=== PATIENT | male | born 1960 | race Caucasian/White ===

== ENCOUNTER 2018-05-11 12:34 | Inpatient (IN) | payer OTHER ==
[~2018-05-11] VITALS: Ht 165.1 cm; Wt 54.0 kg
--- NOTE | 2018-05-11 12:35 | NUR ---
bbpa from [facility]: nausea, vomiting, diarrhea, abdominal pain, NAD noted, VSS, resp even and unlabored. pt was put on monitor, at bs.
[2018-05-11] MEDS ORDERED: KETOROLAC TROMETHAMINE INJ 30 MG/ML VIAL ONE (13:16)
[2018-05-11] MEDS ORDERED: ONDANSETRON HCL/PF 4 MG/2 ML VIAL ONE (13:16)
[2018-05-11 13:22] LABS: BASOPHILS # (AUTO) 0.3 /CMM (0.0-0.2); BASOPHILS % (AUTO) 0.9 % (0.0-2.0); HEMATOCRIT 47 % (39-51); HEMOGLOBIN 16.1 g/dL (13.5-17.5); LYMPHOCYTES # (AUTO) 1.1 /CMM (0.8-4.8); MEAN CORPUSCULAR HEMOGLOBIN 29 PG (26.0-33.0); MEAN CORPUSCULAR HGB CONC 34 g/dl (31.0-36.0); MEAN CORPUSCULAR VOLUME 84 fL (80-96); MONOCYTES % (AUTO) 2.9 % (2.0-12.0); NEUTROPHILS # (AUTO) 33.2 /CMM (1.8-8.9); NEUTROPHILS % (AUTO) 93.2 % (43.0-81.0); PLATELET COUNT (AUTO) 719 /CMM (150-450); RED BLOOD CELL COUNT(AUTO) 5.65 MIL/uL (4.5-6.0)
[2018-05-11 13:26] LABS: WHITE BLOOD COUNT (AUTO) 35.6 K/uL (4.3-11.0)
[2018-05-11] MEDS ORDERED: IV NS 0.9% 1,000 ML BAG IV ONE ×3 (13:30→19:00)
[2018-05-11] MEDS ORDERED: ONDANSETRON HCL/PF 4 MG/2 ML VIAL IVP ONE (13:30)
[2018-05-11] MEDS ORDERED: KETOROLAC TROMETHAMINE INJ 30 MG/ML VIAL IV ONE (13:30)
[2018-05-11 13:39] LABS: ALANINE AMINOTRANSFERASE 9 U/L (12-78); ALBUMIN 2.1 g/dL (3.4-5.0); ALKALINE PHOSPHATASE 71 U/L (46-116); ASPARTATE AMINOTRANSFERASE 11 U/L (15-37); BILIRUBIN,DIRECT 0.1 mg/dL (0.0-0.2); BILIRUBIN,TOTAL 0.6 mg/dL (0.2-1.0); CARBON DIOXIDE 21 mmol/L (21-32); CHLORIDE 92 mmol/L (98-107); GLUCOSE 188 mg/dL (74-106); LIPASE 25 U/L (73-393); POTASSIUM 3.9 mmol/L (3.5-5.1); SODIUM SERUM 123 mmol/L (136-145); TOTAL PROTEIN, SERUM 5.9 g/dL (6.4-8.2); UREA NITROGEN, BLOOD 11 mg/dL (7-18)
[2018-05-11 13:40] LABS: INR 1.36 (0.85-1.15)
[2018-05-11] MEDS ORDERED: CT SWABBABLE VALVE TRANS SET 1 EA INFUS.SET MC ONE (13:59)
[2018-05-11] MEDS ORDERED: IOHEXOL-300 100 ML VIAL IV ONE (13:59)
[2018-05-11] MEDS ORDERED: CEFTRIAXONE 1GM BAG (ER ONLY) 50 ML IV ONE (14:00)
[2018-05-11] MEDS ORDERED: ACETAMINOPHEN ES 500 MG TABLET PO ONE (14:00)
[2018-05-11] MEDS ORDERED: VANCOMYCIN 1 GM in IV D5W 250 ML IV ONE (14:00)
[2018-05-11] MEDS ORDERED: AZITHROMYCIN 500 MG in IV D5W 250 ML IV ONE (14:00)
--- NOTE | 2018-05-11 14:00 | NUR ---
urine sent to lab
[2018-05-11] MEDS ORDERED: ACETAMINOPHEN ES 500 MG TABLET ONE (14:02)
[2018-05-11 14:03] LABS: APPEARANCE,URINE Clear (CLEAR); BILIRUBIN,URINE Negative (NEGATIVE); BLOOD, URINE Trace-intact Ery/uL (NEGATIVE); KETONES,URINE Negative (NEGATIVE); LEUKOCYTE ESTERASE ,URINE Negative (NEGATIVE); NITRITE, URINE Negative (NEGATIVE); PROTEIN,URINE 30 mg/dl (NEGATIVE); UGLUCOSE Negative (NEGATIVE); UROBILINOGEN,URINE 0.2 EU/dL (0.2)
[2018-05-11 14:04] LABS: COLOR,URINE DARK YELLOW (YELLOW)
--- NOTE | 2018-05-11 14:05 | NUR ---
pt to ctscan
[2018-05-11 14:13] LABS: RBC,URINE 0-2 /HPF (0-2); WBC,URINE 0-3 /HPF (0-3)
[2018-05-11 14:14] LABS: BACTERIA,URINE None seen /HPF (None Seen); MUCUS,URINE Few /LPF (None Seen); SQUAMOUS EPITHELIAL CELL,UR Few /HPF (None Seen)
[2018-05-11] MEDS ORDERED: LOPE2TAB25 PO (14:18)
[2018-05-11] MEDS ORDERED: ACET-868 PO (14:18)
[2018-05-11] MEDS ORDERED: POLY17PO4 PO (14:18)
[2018-05-11] MEDS ORDERED: DOCU-141 PO (14:18)
[2018-05-11] MEDS ORDERED: MAGN296S44 PO (14:18)
[2018-05-11] MEDS ORDERED: FERR325T23 PO (14:18)
[2018-05-11] MEDS ORDERED: METO-295 PO (14:18)
[2018-05-11] MEDS ORDERED: BISA10SU8 RC (14:18)
[2018-05-11] MEDS ORDERED: MELA3TAB PO (14:18)
[2018-05-11] MEDS ORDERED: MAGN400O6 PO (14:18)
[2018-05-11] MEDS ORDERED: BACL10TA PO (14:18)
[2018-05-11] MEDS ORDERED: NA P133E RC (14:18)
[2018-05-11 14:46] LABS: BAND % (MANUAL) 71 % (0.0-5.0); LYMPHOCYTES % (MANUAL) 6 % (16-48); MONOCYTES % (MANUAL) 10 % (0-11.0); NEUTROPHILS % (MANUAL) 13 (42-76)
[2018-05-11] MEDS ORDERED: FLAGYL/NS RTU 500 MG/100 ML PIGGYBACK IV ONE (15:00)
[2018-05-11] MEDS ORDERED: MAGNESIUM HYDROXIDE 30 ML UDC PO PRN (15:30)
[2018-05-11] MEDS ORDERED: Z GUARD REMEDY 2 OZ OINT TP PRN (15:30)
[2018-05-11] MEDS ORDERED: ZOLPIDEM TARTRATE 5 MG TABLET PO PRN (15:30)
[2018-05-11] MEDS ORDERED: ACETAMINOPHEN 325 MG TABLET PO PRN (15:30)
[2018-05-11] MEDS ORDERED: HYDROCODONE/APAP 5/325MG 1 EACH TABLET PO PRN (15:30)
--- NOTE | 2018-05-11 15:39 | NUR ---
BED 114-1
[2018-05-11] MEDS ORDERED: METRONIDAZOLE 500MG/ NS 100ML 500 MG in PREMIX 1 EA IV ONE (16:00)
[2018-05-11 16:45] VITALS: BP 89/56
--- NOTE | 2018-05-11 16:45 | NUR ---
TELE/RN ADMITTING NOTES RECEIVED PT FROM ER, VIA CARRILLO ACCOMPANIED BY RN,FAHEEM AND SAV. NO SOB NOTED. DIAPHORETIC AND AFEBRILE. PLACED ON TELE MONITOR. C/O ABDOMINAL PAIN WHEN MOVING. WITH ONGOING FLAGYL IV ON RFA. IV LINE INTACT AND PATENT WITH NO SIGNS OF INFECTION. VS TAKEN AND INITIAL SKIN/BODY ASSESSMENT DONE. SAFETY MEASURES OBSERVED. CALL LIGHT WITHIN REACH CURRENT TEMPT 97.2, WARM BLANKETS PROVIDED. WILL NOTIFY MD, WILL CONT TO MONITOR
[2018-05-11] MEDS ORDERED: METRONIDAZOLE 500MG/ NS 100ML 500 MG in PREMIX 1 EA IV SCH (17:00)
--- NOTE | 2018-05-11 17:00 | NUR ---
RN NOTES NOTIFIED DR DOSS RE: CURRENT PT'S TEMPT OF 97.2 AND BP OF 89/56. AWAITING FOR ORDERS
[2018-05-11] MEDS: ONDANSETRON HCL/PF 4 MG/2 ML VIAL IVP PRN ×2 (17:38→23:30)
[2018-05-11 17:42] VITALS: BP 89/56
[2018-05-11] MEDS: IV NS 0.9% 1,000 ML IV SCH (17:42)
--- NOTE | 2018-05-11 18:00 | NUR ---
RN NOTES PT WAS SEEN AND EXAMINED BY DR DOSS, ALL CONCERNS WERE ANSWERED BY MD. MADE NEW ORDER: IV BOLUS NS 1L, ST EVAL, NOTIFIED MD THAT PT REFUSED NORCO, ORDERED MORPHINE SULFATE 0.5MG/IVP X ONE DOSE. ORDERS NOTED AND CARRIED OUT, PT MADE AWARE, WILL CONT TO MONITOR
[2018-05-11 18:29] LABS: ALBUMIN 1.5 g/dL (3.4-5.0); BILIRUBIN,DIRECT 0.1 mg/dL (0.0-0.2); BILIRUBIN,TOTAL 0.4 mg/dL (0.2-1.0); TOTAL PROTEIN, SERUM 4.6 g/dL (6.4-8.2)
[2018-05-11] MEDS ORDERED: MORPHINE SULFATE INJ 2 MG/ML DISP.SYRIN IVP ONE (19:00)
--- NOTE | 2018-05-11 19:00 | NUR ---
RN NOTES RECEIVED CALL FROM LAB RE: PT'S CURRENT LACTIC ACID 5.3. DR DOSS MADE AWARE WITH ORDERS TO RESUME IVF NS @ 125 ML/HR AFTER BOLUS, THEN REPEAT LACTIC ACID AFTER 6HRS. ORDERS NOTED AND CARRIED OUT. PT DENIES CHEST PAIN AT THIS TIME. WILL CONT TO MONITOR
--- NOTE | 2018-05-11 19:15 | NUR ---
RN NOTES PT IN STABLE CONDITION. NO SOB NOTED, STILL ABDOMINAL PAIN WITH PAIN SCALE OF 4/10. IV BOLUS NS STILL ONGOING. SAFETY MEASURES OBSERVED AT ALL TIMES. ENDORSED TO PM SHIFT NURSE FOR RITESH
[2018-05-11 20:00] VITALS: BP 134/83
--- NOTE | 2018-05-11 21:00 | NUR ---
ANGIOGRAPHY TECHNOLOGIST NOTES LAB CALLED REGARDING STOOL SPECIMEN FOR O&P NOT ENOUGH. NEEDS TO COLLECT ANOTHER STOOL SAMPLE. WILL CONTINUE TO MONITOR.
--- NOTE | 2018-05-11 22:25 | NUR ---
OUTDOOR POWER EQUIPMENT MECHANIC NOTES PT C/O ABD PAIN. PT NOTED TO BE DIAPHORETIC. PER PT, TYLENOL DOESN'T HELP WITH THE PAIN. PT ALLERGIC TO CODEINE. REQUESTING FOR STRONGER PAIN MEDICATION. VSS. TEMP IS 97.4. CALLED DR RODRIGUEZ. NOTIFIED HIM RE PT'S CONDITION. NOTIFIED HIM RE PT'S LACTIC ACID LEVEL EARLIER. WITH NEW ORDERS MADE. ORDERS NOTED AND CARRIED OUT. WILL CONTINUE TO MONITOR.
[2018-05-11] MEDS ORDERED: KETOROLAC TROMETHAMINE INJ 30 MG/ML VIAL IM/IV PRN (23:00)
[2018-05-11 23:11] VITALS: BP 134/83
--- NOTE | 2018-05-11 23:57 | NUR ---
SPANISH INTERPRETER/TRANSLATOR NOTES PT NOTED TO BE DIAPHORETIC. ALSO NOTED TO BE PALE, COLD AND CLAMMY SKIN TO TOUCH. BS CHECKED 238. BP 83/57. HR 120, TEMP 98 RECTALLY, RR 22, 02 98% ON 4LPM VIA NC. PT C/O OF RLQ ABD PAIN RADIATING TO THE BACK. RAPID RESPONSE ACTIVATED. PAGED DR. RODRIGUEZ. AWAITING FOR RESPONSE.
[2018-05-12] VITALS (45 sets, daily range): BP systolic 26–148; BP diastolic 9–87
--- NOTE | 2018-05-12 00:36 | NUR ---
GUN CLUB MANAGER NOTES DR RODRIGUEZ CALLED. NOTIFIED MD RE PT'S CONDITION. WITH NEW ORDERS TO TRANSFER TO PT TO ICU. ORDERS NOTED AND CARRIED OUT. WILL CONTINUE TO MONITOR.
[2018-05-12] MEDS: IV NS 0.9% 1,000 ML IV SCH ×2 (00:40→08:41)
[2018-05-12 00:41] LABS: BASOPHILS # (AUTO) 0.1 /CMM (0.0-0.2); BASOPHILS % (AUTO) 0.2 % (0.0-2.0); EOSINOPHILS % (AUTO) 0.3 % (0.0-6.0); HEMATOCRIT 43 % (39-51); HEMOGLOBIN 13.9 g/dL (13.5-17.5); LYMPHOCYTES % (AUTO) 4.9 % (20.0-44.0); MEAN CORPUSCULAR HEMOGLOBIN 29 PG (26.0-33.0); MEAN CORPUSCULAR HGB CONC 32 g/dl (31.0-36.0); MEAN CORPUSCULAR VOLUME 89 fL (80-96); MONOCYTES # (AUTO) 0.6 /CMM (0.1-1.30); NEUTROPHILS # (AUTO) 58.5 /CMM (1.8-8.9); NEUTROPHILS % (AUTO) 93.6 % (43.0-81.0); PLATELET COUNT (AUTO) 442 /CMM (150-450); RDW COEFFICIENT OF VARIATION 15.6 (11.5-15.0); RED BLOOD CELL COUNT(AUTO) 4.85 MIL/uL (4.5-6.0)
--- NOTE | 2018-05-12 00:47 | NUR ---
TOWER ERECTOR HELPER NOTES REPORT GIVEN TO TALIA DERMATOLOGICAL SURGEON FOR CONTINUITY OF CARE. LAB ALSO CALLED FOR CRITICAL LABS OF PT. WBC IS 62.5 WILL F/U WITH MD. ENDORSED ACCORDINGLY.
[2018-05-12 00:48] LABS: WHITE BLOOD COUNT (AUTO) 62.5 K/uL (4.3-11.0)
--- NOTE | 2018-05-12 00:50 | NUR ---
DIE OPERATOR INITIAL NOTE RECEIVED PATIENT FROM [facility] REPORT GIVEN BY ALISIA MEDELLIN, SPEECH CLEAR, PALLOR, REPORTING ABDOMINAL PAIN 8/10, ON 4L O2 VIA NC, NO CARDIAC DISTRESS, ST ON TELE MONITOR, HYPOTENSIVE, LEFT SIDED WEAKNESS ON BEDREST, F/C DRAINING TO GRAVITY DARK YELLOW URINE, SAFETY MAINTAINED AT ALL TIMES, WILL CONTINUE TO MONITOR FOR ANY CHANGES IN CONDITION.
[2018-05-12 00:57] LABS: PHOSPHORUS 4.1 mg/dL (2.5-4.9)
[2018-05-12] MEDS ORDERED: MISCELLANEOUS MED 1 EA EA XX ONE ×2 (01:00→17:30)
[2018-05-12] MEDS ORDERED: HYDROMORPHONE 1 MG/1 ML DISP.SYRIN IV PRN (01:00)
[2018-05-12 01:10] LABS: POTASSIUM 2.1 mmol/L (3.5-5.1)
[2018-05-12 01:11] LABS: CALCIUM, SERUM 4.3 mg/dL (8.5-10.1); MAGNESIUM 1.1 mg/dL (1.8-2.4)
[2018-05-12] MEDS ORDERED: HYDROMORPHONE INJ 2 MG/ML DISP.SYRIN ONE (01:12)
--- NOTE | 2018-05-12 01:22 | NUR ---
STORE GROUP MANAGER NOTE CALL TO DR PLASCENCIA FOR CRITICAL LABS: WBC 62.5, K 2.1, LACTIC ACID 5.9, CA 4.3, MG 1.1, NEW ORDERS FOR LEVOFED DRIP AND REPLACE MG WITH 4G. RECHECK LABS IN AM.
[2018-05-12] MEDS ORDERED: NOREPINEPHRINE 4 MG/4 ML AMPUL IV ONE ×2 (01:26→06:23)
[2018-05-12] MEDS ORDERED: Magnesium 1GM/D5W 100ML PREMIX 400 ML IV ONE (01:27)
[2018-05-12] MEDS: NOREPINEPHRINE 8 MG in IV D5W 500 ML IV PRN ×3 (01:32→10:26)
[2018-05-12 01:35] LABS: LYMPHOCYTES % (MANUAL) 6 % (16-48); MONOCYTES % (MANUAL) 2 % (0-11.0); NEUTROPHILS % (MANUAL) 19 (42-76)
[2018-05-12 01:36] LABS: BAND % (MANUAL) 73 % (0.0-5.0)
[2018-05-12] MEDS: Magnesium 1GM/D5W 100ML PREMIX 100 ML IV SCH ×4 (01:46→05:05)
[2018-05-12] MEDS ORDERED: PIPERACILLIN /TAZOBACTAM 2.25 G VIAL IV ONE ×2 (01:59→04:16)
[2018-05-12] MEDS: PIPERACILLIN /TAZOBACTAM 4.5 G in IV D5W 50 ML IV SCH ×2 (02:17→05:30)
[2018-05-12 02:41] LABS: INR 2.35 (0.87-1.13)
--- NOTE | 2018-05-12 02:45 | NUR ---
PRINTER SMALL PRINT SHOP NOTE CALL FROM LAB TO REPORT PT 24.6, INR 2.35, PTT 82, CALL TO DR RODRIGUEZ WAITING FOR CALL BACK
--- NOTE | 2018-05-12 03:18 | NUR ---
PARAFFINER NOTE RELAYED TO DR RODRIGUEZ ON CRITICAL LABS PT 24.6, INR 2.35, PTT 82, ORDER TO RECHECK IN AM
[2018-05-12] MEDS ORDERED: Magnesium 1GM/D5W 100ML PREMIX 100 ML IV SCH (03:30)
[2018-05-12] MEDS: POTASSIUM CL. PREMIX PERIPHER. 50 ML IV SCH ×8 (03:32→13:04)
[2018-05-12] MEDS ORDERED: VANCOMYCIN HCL 125 MG/2.5 ML ORAL.SUSP ONE (04:11)
[2018-05-12 04:19] LABS: ABG BASE EXCESS -24.9 mmol/L; ABG OXYGEN SATURATION 99.1 % (92.0-98.5); ABG PCO2 25.5 mmHg (35.0-45.0); ABG PH 6.972 (7.350-7.450); ABG PO2 291.7 mmHg (75.0-100.0); AaDO2 172.8 mmHg; COHb 0.2 % (0.5-1.5); MetHb 0.7 % (0.0-1.5); O2Hb 98.2 % (94.0-97.0); SITE, ABG Right Brachial; VENT MODE, BG SIMPLE MASK
[2018-05-12] MEDS ORDERED: SODIUM BICARBONATE SYR 50 MEQ/50 ML DISP.SYRIN ONE (04:30)
[2018-05-12] MEDS ORDERED: ETOMIDATE 2 MG/ML VIAL ONE ×2 (04:31→04:37)
[2018-05-12] MEDS ORDERED: ROCURONIUM BROMIDE 50 MG/5 ML ONE (04:32)
--- NOTE | 2018-05-12 04:40 | NUR ---
NUT SHELLER MACHINE OPERATOR NOTE PATIENT INTUBATED DUE TO ALTERED ABG, BY DR HOLDEN, PT TOLERATED WELL, WILL CONT TO MONITOR FOR ANY CHANGES.
[2018-05-12] MEDS ORDERED: SODIUM BICARBONATE SYR 50 MEQ/50 ML DISP.SYRIN IV ONE ×3 (05:00→17:10)
[2018-05-12] MEDS ORDERED: ROCURONIUM BROMIDE 50 MG/5 ML IV ONE (05:00)
[2018-05-12] MEDS ORDERED: ETOMIDATE 2 MG/ML VIAL IV ONE (05:00)
--- NOTE | 2018-05-12 05:00 | NUR ---
BUILDING COMPONENTS DESIGNER NOTE NOTED PATIENT HAVING LEFT FOOT REDNESS, PEDAL PULSES CHECKED WITH DOPPLER AND MARKED, WILL CONT TO MONITOR AND ENDORSE TO AM NURSE
--- NOTE | 2018-05-12 05:00 | NUR ---
TECHNOLOGY LEAD NOTE UNABLE TO START KCL X8 BAGS DUE TO PT IS HARD STICK AND UNAVAILABLE LINES WILL START WHEN MAGNESIUM FINISHING INFUSING.
--- NOTE | 2018-05-12 05:30 | NUR ---
RELAY REPAIRER - DR. RODRIGUEZ HERE TO ASSESS PT. ORDERS REC'D. AWARE THAT PT. NEEDS PICC LINE. HS-ASHLEE CALLED & INFORMED OF NEED FOR PICC LINE. PT.IS ALREADY ON LEVOPHED GTT. & NEEDS BICARB GTT. MULTIPLE ELECTROLYTER REPLACEMENT IS ONGOING.
--- NOTE | 2018-05-12 05:30 | NUR ---
DATA ENTRY MANAGER NOTES WBC = 81.6 DR RODRIGUEZ MADE AWARE, NNO RECEIVED. WILL CONTINUE CLOSE MONITORING
[2018-05-12 05:37] LABS: BASOPHILS # (AUTO) 0.1 /CMM (0.0-0.2); BASOPHILS % (AUTO) 0.1 % (0.0-2.0); EOSINOPHILS % (AUTO) 0.8 % (0.0-6.0); HEMATOCRIT 53 % (39-51); HEMOGLOBIN 16.6 g/dL (13.5-17.5); LYMPHOCYTES # (AUTO) 6.3 /CMM (0.8-4.8); LYMPHOCYTES % (AUTO) 7.7 % (20.0-44.0); MEAN CORPUSCULAR HEMOGLOBIN 29 PG (26.0-33.0); MEAN CORPUSCULAR HGB CONC 32 g/dl (31.0-36.0); MEAN CORPUSCULAR VOLUME 91 fL (80-96); MONOCYTES % (AUTO) 1.2 % (2.0-12.0); NEUTROPHILS # (AUTO) 73.6 /CMM (1.8-8.9); NEUTROPHILS % (AUTO) 90.2 % (43.0-81.0); PLATELET COUNT (AUTO) 431 /CMM (150-450); RDW COEFFICIENT OF VARIATION 15.5 (11.5-15.0); RED BLOOD CELL COUNT(AUTO) 5.76 MIL/uL (4.5-6.0)
[2018-05-12] MEDS: VANCOMYCIN HCL 125 MG/2.5 ML ORAL.SUSP PO SCH ×2 (05:39→11:56)
[2018-05-12] MEDS ORDERED: Sodium Bicarbonate 150 MEQ in IV D5W 1,000 ML IV PRN (06:00)
--- NOTE | 2018-05-12 06:00 | NUR ---
SUPERVISOR WINDING DEPARTMENT NOTE DIANNA VIVIAN CALLED MULTIPLE TIMES, LEFT VMAIL ON WORK PHONE, CELL PHONE OUT OF SERVICE TO CALL BACK ICU DEPT, TO INFORM OF PATIENT STATUS WELL NOW NEED FOR PICC LINE CONSENT.
[2018-05-12 06:02] LABS: INR 2.1 (0.87-1.13)
[2018-05-12 06:05] LABS: WHITE BLOOD COUNT (AUTO) 81.6 K/uL (4.3-11.0)
[2018-05-12 06:25] LABS: CALCIUM, SERUM 7.6 mg/dL (8.5-10.1); CREATININE 1.9 mg/dL (0.6-1.3); MAGNESIUM 3.3 mg/dL (1.8-2.4); POTASSIUM 3.9 mmol/L (3.5-5.1)
[2018-05-12 06:28] LABS: BAND % (MANUAL) 68 % (0.0-5.0); LYMPHOCYTES % (MANUAL) 8 % (16-48); MONOCYTES % (MANUAL) 1 % (0-11.0); MYELOCYTES % 1 % (0-0); NEUTROPHILS % (MANUAL) 21 (42-76)
[2018-05-12 06:29] LABS: METAMYELOCYTES % 1 % (0-0)
--- NOTE | 2018-05-12 06:45 | NUR ---
SHOE TREER NOTE OGT PLACED DUE TO PATIENT NPO AND NEED FOR PO MEDICATIONS, AUSCULTATED ABDOMEN FOR PLACEMENT, SECURED TUBING WILL CONT TO MONITOR FOR ANY ACUTE CHANGES
[2018-05-12 06:50] LABS: PHOSPHORUS 8.9 mg/dL (2.5-4.9)
--- NOTE | 2018-05-12 07:00 | NUR ---
STEAM SHOVEL OPERATOR NOTE REPORT ENDORSED TO ANA LAINEZ
--- NOTE | 2018-05-12 07:00 | NUR ---
QUARRY WORKER- INITIAL NOTE RECEIVED PT RESTING IN BED. PT DOES NOT OPEN EYES UPON VERBAL/PAINFUL STIMULI OR FOLLOW ANY COMMANDS. BEDSIDE MONITOR REVEALS SINUS RHYTHM. OGT PRESENT AND CLAMEPED. PLACEMENT VERIFIED VIA AUSCULTATION. AGUSTIN CATHETER PRESENT AND DRAINING TO GRAVITY. MINIMAL OUTPUT NOTED. JAMIE 20G AND RFA 18G IVS PRESENT AND RUNNING LEVOPHED GTT AT 32 MCG/MIN, NS @ 125 ML/HR AND POTASSIUM AT 50 ML/HR. BUE IN PLACE FOR SAFETY. WILL CONTINUE TO MONITOR. Addendum: 05/12/18 at 1149 by ANA SIMMONS RN PT ORALLY INTUBATED ETT 7.5, 23 CM @ THE LIP. RESPIRATIONS EVEN AND UNLABORED, NO SOB OR DISTRESS PRESENT.
--- NOTE | 2018-05-12 07:55 | NUR ---
RT PT RECEIVED ORALLY INTUBATED WITH A 7.5 ETT SECURED AT 23CM AT THE LIP LINE. PT IS ON THE VENT WITH NOTED SETTINGS. PT UNABLE TO FOLLOW COMMANDS AT THIS TIME. VENT IS PLUGGED INTO RED OUTLET. CORPORATE SECURITY OFFICER CUFF PRESSURE NOTED. VENT ALARMS ARE SET AND AUDIBLE WITH BVM BY BEDSIDE. WILL CONTINUE TO MONITOR. Addendum: 05/12/18 at 1033 by DUNCAN VILLA RT Amended: Links added.
[2018-05-12] MEDS ORDERED: PHENYLEPHRINE 80 MG in IV NS 0.9% 250 ML IV PRN (08:00)
--- NOTE | 2018-05-12 08:01 | NUR ---
WOUND CARE CONSULT: PT UNSTABLE TO BE TURNED FOR SKIN ASSESSMENT AT THIS TIME. ALL SKIN PROTECTION MEASURES IN PLACE AND DISCUSSED WITH NURSING STAFF. WILL SEE PRN.
--- NOTE | 2018-05-12 08:25 | NUR ---
DISPENSING AND MEASURING OPTICIAN- ER , DR. MELCHOR AT BEDSIDE INSERTED CENTRAL LINE TO RIGHT FEMORAL.
--- NOTE | 2018-05-12 09:00 | NUR ---
RT ETT PULLED BACK FROM 23CM TO 21CM SECURED AT THE LIP LINE. EQUAL BILATERAL BREATHE SOUNDS AND CHEST RISE. NO SIGNS OR RESPIRATORY DISTRESS NOTED AT THIS TIME, WILL CONTINUE TO MONITOR. Addendum: 05/12/18 at 1007 by DUNCAN VILLA RT Amended: Links added.
--- NOTE | 2018-05-12 09:05 | NUR ---
COMPUTATIONAL THEORY SCIENTIST- PT MAXED ON LEVOPHED. BP IN THE 80S. NEOSYNEPHRINE TO BE STARTED. WILL CONTINUE TO MONITOR.
[2018-05-12 09:15] LABS: ABG BASE EXCESS -23.9 mmol/L; ABG OXYGEN SATURATION 99.4 % (92.0-98.5); ABG PCO2 32.3 mmHg (35.0-45.0); ABG PH 6.965 (7.350-7.450); ABG PO2 420.4 mmHg (75.0-100.0); AaDO2 260.3 mmHg; COHb 0.2 % (0.5-1.5); MetHb 0.8 % (0.0-1.5); O2Hb 98.4 % (94.0-97.0); PEEP,BG 0 cm H2O; SITE, ABG Left Femoral; VT, ABG 500 mL
--- NOTE | 2018-05-12 09:30 | NUR ---
SLITTER AND CUTTER OPERATOR- ABGS DONE BY RT AND RELAYED TO DR. OTERO. OBTAINED ORDERS FOR VENT CHANGES, 2 AMPS OF BICARB, ARTERIAL LINE INSERTION AND REPEAT ABGS AT 1400. ORDERS PLACED. WILL CONTINUE TO MONITOR.
[2018-05-12] MEDS ORDERED: HYDROMORPHONE INJ 2 MG/ML DISP.SYRIN IV PRN (09:51)
[2018-05-12] MEDS ORDERED: METRONIDAZOLE 500 MG TABLET PO SCH (12:00)
[2018-05-12] MEDS ORDERED: PIPERACILLIN /TAZOBACTAM 3.375 G in IV D5W 50 ML IV SCH (12:00)
--- NOTE | 2018-05-12 12:00 | NUR ---
VOLTAGE INSPECTOR- PT HYPOTHERMIC, CORE TEMP= 96.5. WARMING BLANKET PLACED. WILL CONTINUE TO MONITOR.
[2018-05-12] MEDS ORDERED: PROPOFOL 100 ML IV PRN (12:30)
--- NOTE | 2018-05-12 14:00 | NUR ---
MAIL CLERK- DR. DOSS AT BEDSIDE FOR ARTERIAL LINE PLACEMENT.
[2018-05-12 14:22] LABS: ABG BASE EXCESS -19.1 mmol/L; ABG OXYGEN SATURATION 98.6 % (92.0-98.5); ABG PCO2 19.2 mmHg (35.0-45.0); ABG PO2 178.2 mmHg (75.0-100.0); COHb 0.3 % (0.5-1.5); MetHb 0.7 % (0.0-1.5); O2Hb 97.6 % (94.0-97.0); PEEP,BG 0 cm H2O; SITE, ABG A-Line; VT, ABG 550 mL
[2018-05-12] MEDS ORDERED: NOREPINEPHRINE 16 MG in IV D5W 500 ML IV PRN (14:30)
--- NOTE | 2018-05-12 15:00 | NUR ---
MINE ENGINEER- PICC LINE NURSE AT BEDSIDE FOR PICC LINE PLACEMENT. WILL CONTINUE TO MONITOR.
--- NOTE | 2018-05-12 15:14 | NUR ---
SPOKE WITH MIGEL PEREZ, PT NOT STABLE FOR CT SCAN. ICU WILL CALL WHEN READY.
[2018-05-12] MEDS ORDERED: VASOPRESSIN INJ 50 UNIT in IV D5W 497.5 ML IV PRN (16:30)
--- NOTE | 2018-05-12 16:30 | NUR ---
TOOL ENGINE LATHE SET UP OPERATOR- PT MAXED OUT ON LEVOPHED & NEOSYNEPHRINE. VASOPRESSIN GTT TO BE STARTED. WILL CONTINUE TO MONITOR.
--- NOTE | 2018-05-12 16:58 | NUR ---
METER MAKER- PT IN VENTRICULAR RHYTHM. PEA. CODE BLUE INITIATED. 171- CODE BLUE ENDED. PT PRONOUNCED BY ER MD DR. CURRY. 171-ADMITTING, JENNIFER AND NURSING COMMERCIAL TITLE EXAMINER AWARE PT . 172- Ammon IZAGUIRRE TALENT ACQUISITION PROGRAM MANAGER NOTIFIED PT . 1747- [facility] [employer] NOTIFIED OF PT BY CHARGE NURSE, [place].
[2018-05-12] MEDS ORDERED: CALCIUM CHLORIDE 1,000 MG/10 ML DISP.SYRIN IV ONE (17:10)
[2018-05-12] MEDS ORDERED: EPINEPHRINE (1:10,000) SYRINGE 1 MG/10 ML DISP.SYRIN IVP ONE (17:10)
[2018-05-12] MEDS ORDERED: CASPOFUNGIN 50 MG in IV NS 0.9% 250 ML IV SCH (17:30)
[2018-05-12] MEDS ORDERED: LACTOBACILLUS RHAMNOSUS GG 1 EACH CAP.SPRINK NG SCH (17:30)
[2018-05-12] MEDS ORDERED: MEROPENEM 1 G in IV NS 0.9% 100 ML IV SCH (18:00)
[2018-05-12] MEDS ORDERED: METRONIDAZOLE 500MG/ NS 100ML 500 MG in PREMIX 1 EA IV SCH ×4 (18:00→20:00)
== END 2018-05-12 17:11 | disposition expired | DRG 720 ==
LOC: ER 12:40 → TELE-TD 15:46 → TELE1 16:58 → ICU 05-12 00:56
PROVIDERS: ADMIT Family Medicine; ATTEND Family Medicine
PROC: 06HM33Z Insertion of Infusion Device into Right Femoral Vein, Percutaneous Approach (ICD-10-PCS; principal; 2018-05-12)
PROC: 5A12012 Performance of Cardiac Output, Single, Manual (ICD-10-PCS; principal; 2018-05-12)
PROC: 04HL33Z Insertion of Infusion Device into Left Femoral Artery, Percutaneous Approach (ICD-10-PCS; principal; 2018-05-12)
PROC: 02HV33Z Insertion of Infusion Device into Superior Vena Cava, Percutaneous Approach (ICD-10-PCS; principal; 2018-05-12)
PROC: B54BZZA Ultrasonography of Right Lower Extremity Veins, Guidance (ICD-10-PCS; principal; 2018-05-12)
PROC: 5A1935Z Respiratory Ventilation, Less than 24 Consecutive Hours (ICD-10-PCS; principal; 2018-05-12)
PROC: B548ZZA Ultrasonography of Superior Vena Cava, Guidance (ICD-10-PCS; principal; 2018-05-12)
PROC: 0BH18EZ Insertion of Endotracheal Airway into Trachea, Via Natural or Artificial Opening Endoscopic (ICD-10-PCS; principal; 2018-05-12)
DX: A41.9 Sepsis, unspecified organism (principal); J96.00 Acute respiratory failure, unspecified whether with hypoxia or hypercapnia; R65.21 Severe sepsis with septic shock; E43 Unspecified severe protein-calorie malnutrition; G92 Toxic encephalopathy; N17.9 Acute kidney failure, unspecified; K55.9 Vascular disorder of intestine, unspecified; D68.9 Coagulation defect, unspecified; A04.72 Enterocolitis due to Clostridium difficile, not specified as recurrent; E87.2 Acidosis; E87.1 Hypo-osmolality and hyponatremia; E83.41 Hypermagnesemia; E83.39 Other disorders of phosphorus metabolism; E86.0 Dehydration; E83.51 Hypocalcemia; F31.9 Bipolar disorder, unspecified; G40.909 Epilepsy, unspecified, not intractable, without status epilepticus; I10 Essential (primary) hypertension; K21.9 Gastro-esophageal reflux disease without esophagitis; N40.0 Benign prostatic hyperplasia without lower urinary tract symptoms; I69.354 Hemiplegia and hemiparesis following cerebral infarction affecting left non-dominant side; D47.3 Essential (hemorrhagic) thrombocythemia; E88.09 Other disorders of plasma-protein metabolism, not elsewhere classified; R73.9 Hyperglycemia, unspecified; I67.1 Cerebral aneurysm, nonruptured; I73.9 Peripheral vascular disease, unspecified; R13.10 Dysphagia, unspecified
CPT/HCPCS: 31720; 36415; 36600; 71045-TC; 80048-TC; 80061-TC; 80076-TC; 81000-TC; 82550-TC; 82803-TC; 82962-TC; 83605-TC; 83690-TC; 83735-TC; 84100-TC; 85025-TC; 85730-TC; 87040-TC; 87045-TC; 87081-TC; 89055; 92950-TC; 94002-TC; A4216; A4606; A6402; A6403; C1751; J0171; J0456; J0637; J0696; J1170; J1885; J2185; J2270; J2370; J2405; J2543; J3370; J3475; J3480; J3490; J7030; J7040; J7050; J7060; J7070; Q9967; Z7610